=== PATIENT | female | born 1950 | race Caucasian/White ===

== ENCOUNTER 2023-12-25 15:15 | Outpatient (CLI) | payer MEDICARE, BC ==
--- NOTE | 2023-12-26 09:57 | XRAY Report ---
PROCEDURE: Toe(s) 2+V LT INDICATIONS: CONTUSION OF LEFT GREAT TOE TECHNIQUE: 3 views of the toe(s) were obtained. COMPARISON: None FINDINGS: Bones: No fractures or dislocations. No suspicious bony lesions. There is mild medial angulation o f the first metatarsal with compensatory lateral angulation of the first proximal phalanx at the MTP joint. Old healed fracture of the mid second phalanx Soft tissues: No suspicious soft tissue densities. IMPRESSION: No evidence of acute fracture. Old healed second metatarsal fracture. Hallux valgus Reviewed by: Arnel Moser MD on 12/26/2023 8:55 AM [facility] Approved by: Arnel Moser MD on 12/26/2023 8:55 AM [facility] Station ID: [id number]
== END 2023-12-25 15:30 | disposition home or self-care (01) ==
LOC: DI.N 15:15
PROVIDERS: ATTEND Nurse Practitioner
DX: S90.212A Contusion of left great toe with damage to nail, initial encounter (principal); M20.12 Hallux valgus (acquired), left foot
CPT/HCPCS: 73660